=== PATIENT | female | born 1945 | race Caucasian/White ===

== ENCOUNTER → 2016-11-29 | Outpatient (CLI) | payer MEDICARE ==
[~2016-11-29] MED LIST: ASPI1TAB PO; CALTTAB11 PO; CALTTAB5 PO; CENTTAB36 PO; LOSA50TA5 PO; POTA99TA PO; VITA-182 PO
--- NOTE | 2016-11-29 11:50 | REPMRS ---
Patient History The patient states she had a clinical breast exam in 12/04 Patient is postmenopausal. Family history of unknown cancer in brother under age 50. Benign stereotatic breast biopsy of the right breast, July 25, 2009. Reductions of both breasts, 2005. Digital Woman Screen Mammo: November 29, 2016 - Exam #: [id number] Bilateral CC and MLO view(s) were taken. Technologist: Leeann Corral, Technologist Prior study comparison: October 18, 2015, digital woman screen mammo performed at [facility]. September 10, 2014, digital woman screen mammo performed at [facility]. September 10, 2013, digital woman screen mammo performed at [facility]. FINDINGS: The breast tissue is almost entirely fat. There is a needle biopsy marker clip in the right breast. There has been no change in the appearance of the mammogram from the prior studies. There is no interval development of dominant mass, architectural distortion, or clustered microcalcification typical of malignancy. ASSESSMENT: BI-RADS/ACR category 2 mammogram. Benign finding(s). Recommendation Routine screening mammogram of both breasts in 1 year (for women over age 40). This mammogram was interpreted with the aid of an FDA-approved computer-aided dectection system. Electronically Signed By: Korey Easley MD 11/29/16 [id number]
== END ==
LOC: M WHC 11:02
PROVIDERS: ATTEND Nurse Practitioner Women's Health
DX: Z12.31 Encounter for screening mammogram for malignant neoplasm of breast (principal); Z78.0 Asymptomatic menopausal state; Z92.89 Personal history of other medical treatment
CPT/HCPCS: G0202; G0463

== ENCOUNTER → 2017-12-02 | Outpatient (CLI) | payer MEDICARE | LOC: M WHC 10:30 | DX: Z01.419 Encounter for gynecological examination (general) (routine) without abnormal findings (principal); Z12.31 Encounter for screening mammogram for malignant neoplasm of breast (principal); Z78.0 Asymptomatic menopausal state; Z92.89 Personal history of other medical treatment | CPT/HCPCS: 77067 ==

== ENCOUNTER → 2018-12-03 | Outpatient (CLI) | payer MEDICARE ==
[~2018-12-03] MED LIST changes: -ASPI1TAB PO; +ASPI81TA26 PO
--- NOTE | 2018-12-03 15:16 | REPMRS ---
Patient History The patient states she had a clinical breast exam in 11/2018. No known family history of cancer. Benign stereotatic breast biopsy of the right breast, July 25, 2009. Reductions of both breasts, 2005. Digital Woman Screen Mammo: December 03, 2018 - Exam #: [id number] Bilateral CC and MLO view(s) were taken. Technologist: Lorene Purvis Technologist Prior study comparison: December 02, 2017, bilateral digital woman screen mammo performed at [facility]. November 29, 2016, digital woman screen mammo performed at [facility]. October 18, 2015, digital woman screen mammo performed at [facility]. FINDINGS: There are scattered fibroglandular densities. There is a needle biopsy marker clip again noted in the right breast. There is a small nodular neodensity seen on 3-D tomography images in the right central breast superiorly. This is not apparent previously. This merits further evaluation. There has been no change in the appearance of the mammogram from the prior studies. There is a mild amount of scattered fibroglandular density which is fairly symmetric. There is no interval development of dominant mass, architectural distortion, or grouped microcalcification suggestive of malignancy. 3-D tomosynthesis shows no additional findings. Assessment: BI-RADS/ACR category 0 mammogram, Incomplete: Need additional imaging evaluation and/or prior mammograms for comparison. Recommendation Ultrasound and special view mammogram of the right breast. This patient's Lifetime Breast Cancer Risk is estimated at 3.2 %. This mammogram was interpreted with the aid of an FDA-approved computer-aided dectection system. Electronically Signed By: Korey Easley MD 12/03/18 [id number]
--- NOTE | 2018-12-05 09:38 | DEXA ---
AP SPINE L1 - L4 1.427 2.1 3.7 LT FEMUR TOTAL 0.910 -0.8 -0.8 LT NECK 0.887 -1.1 0.7 RT FEMUR TOTAL 0.847 -1.3 0.2 RT NECK 0.849 -1.4 0.4 TOTAL BODY TOTAL OTHER COMMENTS: Normal bone densitometry of the spine. There is low bone density of the hips. The density of the spine has decreased 5.3% since 11/06/2002. The density of the left hip has decreased 9.7% since 11/06/2002. The density of the right hip has decreased 16.6% since 11/06/2002. FOLLOW-UP: Recommendation for the next bone density exam: 2 years. KELTON
== END ==
LOC: M WHC 10:10
PROVIDERS: ATTEND Nurse Practitioner Women's Health
DX: Z01.419 Encounter for gynecological examination (general) (routine) without abnormal findings (principal); Z12.31 Encounter for screening mammogram for malignant neoplasm of breast; Z78.0 Asymptomatic menopausal state; Z86.018 Personal history of other benign neoplasm; Z98.890 Other specified postprocedural states; N63.10 Unspecified lump in the right breast, unspecified quadrant
CPT/HCPCS: 77063; 77067; 77080; G0101

== ENCOUNTER → 2018-12-15 | Outpatient (CLI) | payer MEDICARE ==
--- NOTE | 2018-12-15 16:27 | REP ---
DIAGNOSTIC MAMMOGRAM RIGHT BREAST WITH RIGHT BREAST ULTRASOUND: Multiple spot compression and tomographic images are performed of the right breast to evaluate for a possible nodule seen posteriorly and posteriorly on the prior right MLO view performed 12/03/2018. This was only seen in that one projection on that screening exam. Today's views show that the nodular density appears to compress out to an unchanged appearance when compared to other prior exams including the tomographic images of 12/02/2017. I do not see a persistent suspicious nodule. Real-time sonographic evaluation of the upper outer quadrant of the right breast is performed. There is a lymph node in this region which measures 14 x 9 x 10 mm demonstrating normal appearing morphology of the fatty hilum. IMPRESSION: ACR 2 benign. Nodular density on the right MLO view appears to compress out to an unchanged appearance compared to prior study of 12/02/2017. In this region there is a lymph node identified which appears normal in morphology. The findings are benign. Recommend followup mammogram in one year. BIRADS 2: BI-RADS/ACR category 2 mammogram. Benign Findings. The patient letter being requested is M1. Electronically Signed by Warner Spence MD 12/15/2018 04:31 P
== END ==
LOC: M RAD 10:20
PROVIDERS: ATTEND Nurse Practitioner Women's Health
DX: R92.8 Other abnormal and inconclusive findings on diagnostic imaging of breast (principal)

== ENCOUNTER → 2019-12-07 | Outpatient (CLI) | payer MEDICARE ==
--- NOTE | 2019-12-07 10:49 | REPMRS ---
Patient History The patient states she has not had a clinical breast exam in over a year. No known family history of cancer. Benign stereotatic breast biopsy of the right breast, July 25, 2009. Reductions of both breasts, 2005. 3D TOMOSYNTHESIS WAS PERFORMED. The Linsey Arango lifetime risk for breast cancer is 3.0%. VOLARUNAA CHAYO B. Digital Woman Screen Mammo: December 07, 2019 - Exam #: [id number] Bilateral CC and MLO view(s) were taken. Technologist: Geetha White, Technologist Prior study comparison: December 15, 2018, right breast digital mammo diagnostic unilateral, performed at [facility]. December 03, 2018, bilateral digital woman screen mammo performed at [facility]. FINDINGS: There are scattered fibroglandular densities. There has been no change in the appearance of the mammogram from the prior studies. There is a mild amount of residual fibroglandular tissue which is fairly symmetric. There is no interval development of dominant mass, architectural distortion, or clustered microcalcification suggestive of malignancy. Assessment: BI-RADS/ACR category 1 mammogram. Negative Mammogram. Recommendation Routine screening mammogram in 1 year (for women over age 40). This mammogram was interpreted with the aid of an FDA-approved computer-aided dectection system. Electronically Signed By: Warner Spence MD 12/07/19 [id number]
== END ==
LOC: M WHC 09:58
PROVIDERS: ATTEND Nurse Practitioner Women's Health
DX: Z12.31 Encounter for screening mammogram for malignant neoplasm of breast (principal)

== ENCOUNTER → 2020-03-04 | Outpatient (CLI) | payer MEDICARE ==
--- NOTE | 2020-03-04 12:03 | REPPI ---
INDICATION: BACK SPASMS. COMPARISON: None. TECHNIQUE: Three views FINDINGS: There is heavy mid and lower thoracic right-sided syndesmophyte formation with bilateral lower thoracic level and upper lumbar level syndesmophyte formation. There is moderate disc space narrowing at every level. Vertebral body height is within normal limits. IMPRESSION: Advanced chronic changes <Electronically signed by Abiel Burgos > 03/04/20 [id number]
== END ==
LOC: M WUC 09:38
PROVIDERS: ATTEND Physician Assistant
DX: M25.78 Osteophyte, vertebrae (principal); M51.34 Other intervertebral disc degeneration, thoracic region

== ENCOUNTER → 2020-04-25 | Outpatient (CLI) | payer MEDICARE ==
--- NOTE | 2020-04-25 09:09 | REP ---
INDICATION: PAIN, R/O MYELOMALACIA. COMPARISON: Comparison is made with thoracic spine radiographs from 04 March 2020.. TECHNIQUE: Sagittal and axial T1 and T2-weighted scans are acquired in the usual fashion with and without fat saturation. Sequences include spin echo, turbo spin-echo, and STIR imaging sequences. FINDINGS: Cervical vertebral body heights are preserved alignment is normal. Cervical cord is normal in course, caliber, and signal intensity on T1 and T2 weighted scans. No extra vertebral abnormality is observed. Axial and sagittal images at the C2-C3 level demonstrate a small central focal disc protrusion which indents the ventral subarachnoid space but does not contact the cord. There is no spinal stenosis or foraminal narrowing. At C3-C4, there is central disc bulging which effaces the ventral subarachnoid space. No cord compression. No neural foraminal narrowing is seen. At C4-C5, there is diffuse disc bulging which contacts the ventral margin of the cord. There is some ligamentum flavum hypertrophy and canal size is narrowed as result, the midline AP dimension of the thecal sac at C4-C5 is 7 mm. There is uncovertebral spurring on the left producing mild left-sided foraminal encroachment. At C5-C6 there is degenerative disc narrowing posterior osteophytic ridging and diffuse disc bulging. There is bilateral uncovertebral spurring at C5-6 and there is moderate central canal stenosis due to these factors in combination with some ligamentum flavum hypertrophy. The midline AP dimension of the thecal sac at the C5-6 level is 6 mm. The right-sided uncovertebral spurring is more pronounced than the left. At C6-C7 there is degenerative disc narrowing as well with diffuse disc bulging. This indents the ventral margin of the cord. Canal size is borderline. Midline AP dimension of the thecal sac is 8 mm. There is uncovertebral spurring bilaterally at C6-C7, left a little more prominently than right. The C7-T1 and the visualized upper thoracic levels are unremarkable. IMPRESSION: Degenerative spondylosis changes as above. Central canal stenosis most pronounced at C5-6 and C4-5. Bilateral uncovertebral spurring and foraminal narrowing most pronounced at C5-6. There is no MR evidence of myelomalacia.. <Electronically signed by Korey Easley > 04/25/20 [id number]
--- NOTE | 2020-04-25 09:15 | REP ---
INDICATION: PAIN, R/O MYELOMALACIA. COMPARISON: Comparison thoracic spine radiographs 04 March 2020.. TECHNIQUE: Sagittal and axial T1 and T2-weighted scans are acquired in the usual fashion with and without fat saturation. Sequences include spin echo, turbo spin-echo, and STIR imaging sequences. FINDINGS: Thoracic vertebral body heights are preserved. No fracture or collapse is seen. There are moderate discogenic spurs on the right side anteriorly in the midthoracic spine most pronounced at T6-T7. Thoracic spinal cord is normal in course, caliber, and signal intensity. No evidence of myelomalacia lesion. At the T9-10 level there is a left posterior focal disc protrusion which contacts the ventral margin of the thoracic cord to the left of midline. No cord compression is seen. No spinal stenosis is noted. There is some associated discogenic spurring at T9-10. Disc space narrowing is seen. No other thoracic disc protrusion is appreciated. No neural foraminal narrowing is seen. There are mild degenerative disc changes at at T12-L1 and L1-L2. Disc space narrowing is noted at T7-T8 and T6-T7 mild in degree. IMPRESSION: There is a small left posterior disc protrusion at T9-10 contacting the ventral margin of the cord. No cord compression. No evidence of myelomalacia. <Electronically signed by Korey Easley > 04/25/20 [id number]
== END ==
LOC: M RAD 06:25
PROVIDERS: ATTEND Physical Medicine & Rehabilitation
DX: M47.812 Spondylosis without myelopathy or radiculopathy, cervical region (principal); M48.02 Spinal stenosis, cervical region; M25.78 Osteophyte, vertebrae; M51.24 Other intervertebral disc displacement, thoracic region; M54.6 Pain in thoracic spine; M54.2 Cervicalgia

== ENCOUNTER → 2021-05-04 | Outpatient (REF) | payer MEDICARE | LOC: M SFHCDERM 14:07 | PROVIDERS: ATTEND Nurse Practitioner Family | DX: L82.1 Other seborrheic keratosis (principal) ==

== ENCOUNTER → 2021-06-26 | Outpatient (CLI) | payer MEDICARE | LOC: M WHC 10:17 | PROVIDERS: ATTEND Advanced Practice Midwife | DX: Z12.31 Encounter for screening mammogram for malignant neoplasm of breast (principal) ==

== ENCOUNTER → 2022-01-09 | Outpatient (REF) | payer MEDICARE ==
[2022-01-09 16:59] LABS: BASO % 0.4 % (0.0-1.0); EOS % 0.8 % (0.0-3.0); HEMATOCRIT 39.9 % (36.0-47.0); HEMOGLOBIN 12.5 g/dl (12.0-15.5); LYMPH # 1.6 10^3/uL (1.5-5.0); LYMPH % 29.8 % (24.0-44.0); MEAN CORPUSCULAR HEMOGLOBIN 30.5 pg (27.0-33.0); MEAN CORPUSCULAR HGB CONC 31.3 g/dl (32.0-36.5); MEAN CORPUSCULAR VOLUME 97.3 fl (80.0-96.0); MONO # 0.5 10^3/uL (0.0-0.8); MONO % 9.1 % (2.0-8.0); NEUTROPHILS # 3.1 10^3/uL (1.5-8.5); NEUTROPHILS % 59.5 % (36.0-66.0); PLATELET COUNT, AUTOMATED 253 10^3/uL (150-450); WHITE BLOOD COUNT 5.3 10^3/uL (4.0-10.0)
[2022-01-09 18:54] LABS: ALBUMIN 3.7 G/DL (3.2-5.2); ALT/SGPT 16 U/L (7.0-40); BILIRUBIN,TOTAL 0.3 MG/DL (0.3-1.2); BLOOD UREA NITROGEN 14 MG/DL (9-23); CARBON DIOXIDE LEVEL 28 MMOL/L (20-31); CHLORIDE LEVEL 104 MMOL/L (98-107); CHOLESTEROL LEVEL 159 MG/DL (<200); CHOLESTEROL RISK RATIO 2.58 (<5); GLOMERULAR FILTRATION RATE > 60.0 (>39); GLUCOSE, FASTING 116 MG/DL (74-106); HDL CHOLESTEROL 61.4 MG/DL (>40); LDL CHOLESTEROL 77.4 MG/DL (<100); NON-HDL-C 98 MG/DL; POTASSIUM SERUM 4.5 MMOL/L (3.5-5.1); SODIUM LEVEL 142 MMOL/L (136-145); TOTAL PROTEIN 6.7 G/DL (5.7-8.2); TRIGLYCERIDES LEVEL 101 MG/DL (<150)
== END ==
LOC: M WUC 11:48
PROVIDERS: ATTEND Physician Assistant
DX: I10 Essential (primary) hypertension (principal); E78.5 Hyperlipidemia, unspecified

== ENCOUNTER → 2022-04-06 | Outpatient (CLI) | payer MEDICARE ==
[2022-04-06 17:07] LABS: HEMOGLOBIN A1c 5.2 % (4.0-6.0)
== END ==
LOC: M WUC 11:40
PROVIDERS: ATTEND Physician Assistant
DX: R73.01 Impaired fasting glucose (principal)

== ENCOUNTER → 2022-07-06 | Outpatient (CLI) | payer MEDICARE ==
[2022-07-06 13:11] LABS: ALBUMIN 3.8 G/DL (3.2-5.2); ALKALINE PHOSPHATASE 75 U/L (46-116); ALT/SGPT 18 U/L (7.0-40); AST/SGOT 21 U/L (<34); BILIRUBIN,TOTAL 0.8 MG/DL (0.3-1.2); BLOOD UREA NITROGEN 13 MG/DL (9-23); CALCIUM LEVEL 9.7 MG/DL (8.3-10.6); CARBON DIOXIDE LEVEL 28 MMOL/L (20-31); CHLORIDE LEVEL 107 MMOL/L (98-107); CHOLESTEROL LEVEL 165 MG/DL (<200); CHOLESTEROL RISK RATIO 2.61 (<5); CREATININE FOR GFR 0.62 MG/DL (0.55-1.30); GLOMERULAR FILTRATION RATE > 60.0 (>39); GLUCOSE, FASTING 81 MG/DL (74-106); HDL CHOLESTEROL 63.2 MG/DL (>40); LDL CHOLESTEROL 84.8 MG/DL (<100); NON-HDL-C 101.8 MG/DL; POTASSIUM SERUM 4.7 MMOL/L (3.5-5.1); SODIUM LEVEL 140 MMOL/L (136-145); TOTAL PROTEIN 6.8 G/DL (5.7-8.2); TRIGLYCERIDES LEVEL 85 MG/DL (<150)
== END ==
LOC: M WUC 10:09
PROVIDERS: ATTEND Physician Assistant
DX: I10 Essential (primary) hypertension (principal); E78.5 Hyperlipidemia, unspecified

== ENCOUNTER 2022-11-22 16:01 | Emergency (ER) | payer MEDICARE ==
[~2022-11-22] VITALS: Ht 162.6 cm; Wt 68.6 kg
[2022-11-22] MEDS ORDERED: ATOR1TAB19 (16:26)
[2022-11-22] MEDS ORDERED: ACETAMINOPHEN 500 MG TAB PO ONE (19:10)
[2022-11-22 19:17] VITALS: BP 167/79; TEMP 97.6; O2SAT 100
== END 2022-11-22 19:39 | disposition home or self-care (01) ==
LOC: M ED 16:01
DX: S70.02XA Contusion of left hip, initial encounter (principal); I10 Essential (primary) hypertension; E78.5 Hyperlipidemia, unspecified; F10.10 Alcohol abuse, uncomplicated; Z88.6 Allergy status to analgesic agent; Z79.82 Long term (current) use of aspirin; Z79.02 Long term (current) use of antithrombotics/antiplatelets; Z79.811 Long term (current) use of aromatase inhibitors; Z79.899 Other long term (current) drug therapy

== ENCOUNTER → 2022-11-30 | Outpatient (CLI) | payer MEDICARE ==
[~2022-11-30] MED LIST changes: +ATOR1TAB19
== END ==
LOC: M WUC 14:01
PROVIDERS: ATTEND Physician Assistant
DX: M25.552 Pain in left hip (principal); R10.2 Pelvic and perineal pain; Z53.9 Procedure and treatment not carried out, unspecified reason

== ENCOUNTER 2022-12-14 17:33 | Inpatient (IN) | payer OTHER, MEDICARE ==
[~2022-12-14] VITALS: Ht 162.6 cm; Wt 66.1 kg
[~2022-12-14 17:33] MED LIST changes: -ACET-683 PO; -LOSA50TA28 PO; -MULT1TAB50 PO; -PERCOCET PO; -POTA99CA2 PO; -VITA100093 PO
[2022-12-14] MEDS ORDERED: LOSARTAN 50MG TABLET PO SCH (21:00)
[2022-12-14] MEDS ORDERED: LOSARTAN 25 MG TAB PO SCH (21:00)
[2022-12-14] MEDS ORDERED: LOSARTAN 25 MG TAB PO ONE (21:20)
[2022-12-14 21:46] LABS: BASO % 0.3 % (0.0-1.0); EOS # 0.1 10^3/uL (0.0-0.5); EOS % 0.8 % (0.0-3.0); LYMPH # 1.9 10^3/uL (1.5-5.0); LYMPH % 29.2 % (24.0-44.0); MEAN CORPUSCULAR HEMOGLOBIN 30.6 pg (27.0-33.0); MEAN CORPUSCULAR HGB CONC 33.3 g/dl (32.0-36.5); MEAN CORPUSCULAR VOLUME 91.8 fl (80.0-96.0); MONO # 0.6 10^3/uL (0.0-0.8); MONO % 8.3 % (2.0-8.0); NEUTROPHILS # 4.1 10^3/uL (1.5-8.5); NEUTROPHILS % 61.2 % (36.0-66.0); PLATELET COUNT, AUTOMATED 274 10^3/uL (150-450); RED BLOOD COUNT 4.25 10^6/uL (4.00-5.40); WHITE BLOOD COUNT 6.6 10^3/uL (4.0-10.0)
[2022-12-14 22:12] LABS: ALBUMIN 3.7 G/DL (3.2-5.2); ALKALINE PHOSPHATASE 112 U/L (46-116); ALT/SGPT 12 U/L (7.0-40); AST/SGOT 17 U/L (<34); BILIRUBIN,TOTAL 0.6 MG/DL (0.3-1.2); BLOOD UREA NITROGEN 12 MG/DL (9-23); CALCIUM LEVEL 9.4 MG/DL (8.3-10.6); CARBON DIOXIDE LEVEL 26 MMOL/L (20-31); CHLORIDE LEVEL 104 MMOL/L (98-107); CREATININE FOR GFR 0.53 MG/DL (0.55-1.30); GLOMERULAR FILTRATION RATE > 60.0 (>39); GLUCOSE, FASTING 101 MG/DL (74-106); POTASSIUM SERUM 4.1 MMOL/L (3.5-5.1); SODIUM LEVEL 141 MMOL/L (136-145); TOTAL PROTEIN 7.1 G/DL (5.7-8.2)
[2022-12-14 22:18] LABS: RSV AMPLIFICATION NEGATIVE (NEGATIVE)
[2022-12-14] MEDS ORDERED: POTA99CA2 PO (23:05)
[2022-12-14] MEDS ORDERED: LOSA50TA28 PO (23:05)
[2022-12-14] MEDS ORDERED: MULT1TAB50 PO (23:05)
[2022-12-14] MEDS ORDERED: VITA100093 PO (23:05)
[2022-12-14] MEDS ORDERED: HOME MED LIST COMPLETE! XX SCH (23:10)
[2022-12-14] MEDS ORDERED: HYDROMORPHONE HCL 0.5 MG/ 0.5 ML SYRINGE IV PRN (23:15)
[2022-12-14] MEDS ORDERED: ACETAMINOPHEN TAB 650MG DOSE (2X325MG) PO PRN (23:15)
[2022-12-14] MEDS ORDERED: ONDANSETRON 4MG 2ML VIAL IV PRN (23:15)
[2022-12-15] VITALS (11 sets, daily range): BP systolic 118–159; BP diastolic 63–78; TEMP 97.2–98.1; O2SAT 97–99
[2022-12-15] MEDS: ATORVASTATIN 10 MG TAB PO SCH ×2 (01:30→20:12)
[2022-12-15] MEDS: D5W/LR 1,000 ML IV SCH ×3 (01:51→20:13)
[2022-12-15] MEDS ORDERED: TRANEXAMIC ACID 100 MG/ML 10ML VIAL As Ordered ONE (07:59)
[2022-12-15] MEDS ORDERED: ceFAZolin 2 GM/D5W 50 ML IV BAG As Ordered ONE (08:00)
[2022-12-15] MEDS ORDERED: propofoL 200 MG/20 ML VIAL As Ordered ONE (09:06)
[2022-12-15] MEDS ORDERED: SEVOFLURANE INHAL SOLN 250 ML BTL As Ordered ONE (09:06)
[2022-12-15] MEDS ORDERED: ACETAMINOPHEN 1000MG 100ML IV BAG As Ordered ONE (09:06)
[2022-12-15] MEDS ORDERED: fentaNYL 100 MCG/2 ML INJECTION As Ordered ONE (09:06)
[2022-12-15] MEDS ORDERED: MIDAZOLAM INJ 2MG/2ML VIAL As Ordered ONE (09:06)
[2022-12-15] MEDS ORDERED: LIDOCAINE 2% 100MG/5ML SDV (FOR ANES.) As Ordered ONE (09:06)
[2022-12-15] MEDS ORDERED: PHENYLephrine 500MCG 5ML (100MCG/ML) SYRINGE As Ordered ONE (09:13)
[2022-12-15] MEDS ORDERED: ONDANSETRON 4MG 2ML VIAL As Ordered ONE (09:23)
[2022-12-15] MEDS ORDERED: ONDANSETRON 4MG 2ML VIAL IV PRN (10:05)
[2022-12-15] MEDS ORDERED: oxyCODONE 5MG TAB PO PRN (10:05)
[2022-12-15] MEDS ORDERED: HYDROMORPHONE HCL 0.5 MG/ 0.5 ML SYRINGE IV PRN (10:05)
[2022-12-15] MEDS ORDERED: METOCLOPRAMIDE INJ 10MG/2ML VIAL IV PRN (10:05)
[2022-12-15] MEDS ORDERED: MEPERIDINE 25 MG/ML 1ML VIAL IV PRN (10:05)
[2022-12-15] MEDS ORDERED: diphenhydrAMINE 50MG/ML VIAL IV PRN (10:05)
[2022-12-15] MEDS ORDERED: PERCOCET 5MG/325MG TAB PO PRN (15:40)
[2022-12-15] MEDS: ceFAZolin SOD 2 GM in IV 1 EA IV SCH (16:31)
[2022-12-15] MEDS ORDERED: ENOXAPARIN 40MG/0.4ML SYRINGE (J1650 PER 10MG) SC ONE (18:00)
[2022-12-15] MEDS: LOSARTAN 25 MG TAB PO SCH (20:12)
[2022-12-16] MEDS: ceFAZolin SOD 2 GM in IV 1 EA IV SCH ×2 (00:17→07:51)
[2022-12-16 02:00] VITALS: BP 124/69; TEMP 97.5; O2SAT 95
[2022-12-16] MEDS: D5W/LR 1,000 ML IV SCH (05:33)
[2022-12-16 06:00] VITALS: BP 160/80; TEMP 97.5; O2SAT 97
[2022-12-16 06:54] LABS: HEMATOCRIT 32.7 % (36.0-47.0); MEAN CORPUSCULAR HEMOGLOBIN 31.1 pg (27.0-33.0); MEAN CORPUSCULAR HGB CONC 33.6 g/dl (32.0-36.5); MEAN CORPUSCULAR VOLUME 92.4 fl (80.0-96.0); PLATELET COUNT, AUTOMATED 211 10^3/uL (150-450); RED BLOOD COUNT 3.54 10^6/uL (4.00-5.40); WHITE BLOOD COUNT 8.1 10^3/uL (4.0-10.0)
[2022-12-16 07:17] LABS: ALBUMIN 2.7 G/DL (3.2-5.2); ALKALINE PHOSPHATASE 89 U/L (46-116); ALT/SGPT 10 U/L (7.0-40); AST/SGOT 23 U/L (<34); BILIRUBIN,TOTAL 0.7 MG/DL (0.3-1.2); BLOOD UREA NITROGEN 8 MG/DL (9-23); CALCIUM LEVEL 8.3 MG/DL (8.3-10.6); CARBON DIOXIDE LEVEL 25 MMOL/L (20-31); CHLORIDE LEVEL 106 MMOL/L (98-107); CREATININE FOR GFR 0.49 MG/DL (0.55-1.30); GLOMERULAR FILTRATION RATE > 60.0 (>39); GLUCOSE, FASTING 133 MG/DL (74-106); POTASSIUM SERUM 3.8 MMOL/L (3.5-5.1); SODIUM LEVEL 139 MMOL/L (136-145); TOTAL PROTEIN 5.4 G/DL (5.7-8.2)
[2022-12-16] MEDS: ENOXAPARIN 40MG/0.4ML SYRINGE (J1650 PER 10MG) SC SCH (08:45)
[2022-12-16] MEDS ORDERED: ACET-683 PO (10:30)
[2022-12-16] MEDS ORDERED: ASPI81TA26 PO (10:30)
[2022-12-16] MEDS ORDERED: PERCOCET PO (10:30)
[2022-12-16 14:00] VITALS: BP 166/86; TEMP 97.9; O2SAT 97
[2022-12-16] MEDS ORDERED: PERCOCET 5MG/325MG TAB PO PRN ×2 (15:35)
[2022-12-16 19:59] VITALS: BP 166/86
[2022-12-16] MEDS: ATORVASTATIN 10 MG TAB PO SCH (19:59)
[2022-12-16] MEDS: LOSARTAN 25 MG TAB PO SCH (19:59)
[2022-12-16 20:05] VITALS: BP 160/80; TEMP 97.7; O2SAT 98
[2022-12-17 06:59] VITALS: BP 137/72; TEMP 97.3; O2SAT 97
[2022-12-17] MEDS: ENOXAPARIN 40MG/0.4ML SYRINGE (J1650 PER 10MG) SC SCH (08:27)
== END 2022-12-17 14:05 | disposition home or self-care (01) | DRG 308 ==
LOC: M ED 17:33 → M ED INP 23:12 → M MS5PR 12-15 01:00
PROVIDERS: ADMIT Internal Medicine; ATTEND Student in an Organized Health Care Education/Training Program
PROC: 0QS704Z Reposition Left Upper Femur with Internal Fixation Device, Open Approach (ICD-10-PCS; principal; 2022-12-15 07:30)
DX: S72.002A Fracture of unspecified part of neck of left femur, initial encounter for closed fracture (principal); I10 Essential (primary) hypertension; D50.0 Iron deficiency anemia secondary to blood loss (chronic); E03.9 Hypothyroidism, unspecified; W01.0XXA Fall on same level from slipping, tripping and stumbling without subsequent striking against object, initial encounter; Y92.9 Unspecified place or not applicable; E78.5 Hyperlipidemia, unspecified; Z90.49 Acquired absence of other specified parts of digestive tract; Z90.79 Acquired absence of other genital organ(s); Z79.82 Long term (current) use of aspirin; Z79.899 Other long term (current) drug therapy; Z88.6 Allergy status to analgesic agent; Z20.822 Contact with and (suspected) exposure to COVID-19

== ENCOUNTER → 2022-12-14 | Outpatient (CLI) | payer MEDICARE ==
[~2022-12-14] MED LIST changes: +ACET-683 PO; -ATOR1TAB19; +ATOR1TAB19 PO; +LOSA50TA28 PO; +MULT1TAB50 PO; +PERCOCET PO; +POTA99CA2 PO; +VITA100093 PO
== END ==
LOC: M SOG 16:10
PROVIDERS: ATTEND Orthopaedic Surgery
DX: M25.552 Pain in left hip (principal); M16.0 Bilateral primary osteoarthritis of hip; M47.816 Spondylosis without myelopathy or radiculopathy, lumbar region

== ENCOUNTER → 2022-12-28 | Outpatient (CLI) | payer OTHER, MEDICARE ==
[~2022-12-28] MED LIST changes: +ACET-683 PO; +LOSA50TA28 PO; +MULT1TAB50 PO; +PERCOCET PO; +POTA99CA2 PO; +VITA100093 PO
== END ==
LOC: M SOG 08:18
PROVIDERS: ATTEND Physician Assistant
DX: S72.002D Fracture of unspecified part of neck of left femur, subsequent encounter for closed fracture with routine healing (principal); M76.892 Other specified enthesopathies of left lower limb, excluding foot

== ENCOUNTER 2023-01-16 10:25 | Outpatient (RCR) | payer MEDICARE, OTHER | END 2023-01-17 | LOC: M PT 10:25 | PROVIDERS: ATTEND Physician Assistant | DX: S72.002D Fracture of unspecified part of neck of left femur, subsequent encounter for closed fracture with routine healing (principal) ==

== ENCOUNTER → 2023-01-16 | Outpatient (CLI) | payer OTHER, MEDICARE | LOC: M SOG 07:51 | PROVIDERS: ATTEND Orthopaedic Surgery | DX: S72.002D Fracture of unspecified part of neck of left femur, subsequent encounter for closed fracture with routine healing (principal) ==

== ENCOUNTER 2023-02-13 10:36 | Outpatient (RCR) | payer MEDICARE | END 2023-02-17 | LOC: M PT 10:36 | PROVIDERS: ATTEND Physician Assistant | DX: S72.002D Fracture of unspecified part of neck of left femur, subsequent encounter for closed fracture with routine healing (principal) ==

== ENCOUNTER → 2023-03-20 | Outpatient (RCR) | payer MEDICARE | END | disposition still patient (30) | LOC: M PT 02-20 10:25 | PROVIDERS: ATTEND Physician Assistant | DX: S72.002D Fracture of unspecified part of neck of left femur, subsequent encounter for closed fracture with routine healing (principal) ==

== ENCOUNTER 2023-03-29 11:25 | Emergency (ER) | payer MEDICARE ==
[~2023-03-29] VITALS: Ht 162.6 cm; Wt 70.9 kg
[2023-03-29] MEDS: NEOSPORIN TOP OINT 15GM TOP ONE (13:56)
[2023-03-29] MEDS: BOOSTRIX VACCINE (TETANUS/DIPHTH/ACEL. PERTUSSIS) 0.5ML SYR IM ONE (13:56)
[2023-03-29 14:26] VITALS: BP 142/75; TEMP 97.1; O2SAT 100
== END 2023-03-29 14:29 | disposition home or self-care (01) ==
LOC: M ED 11:25 → EDBD 11:25 → M ED 14:29
DX: S60.511A Abrasion of right hand, initial encounter (principal); W10.1XXA Fall (on)(from) sidewalk curb, initial encounter; I10 Essential (primary) hypertension; Z88.6 Allergy status to analgesic agent; Z79.02 Long term (current) use of antithrombotics/antiplatelets; Z79.811 Long term (current) use of aromatase inhibitors; Z79.82 Long term (current) use of aspirin; Z79.899 Other long term (current) drug therapy; Z23 Encounter for immunization

== ENCOUNTER → 2023-04-17 | Outpatient (CLI) | payer MEDICARE | LOC: M SOG 07:54 | PROVIDERS: ATTEND Physician Assistant | DX: S72.002A Fracture of unspecified part of neck of left femur, initial encounter for closed fracture (principal); Y92.9 Unspecified place or not applicable; Y93.9 Activity, unspecified ==

== ENCOUNTER → 2023-05-08 | Outpatient (CLI) | payer MEDICARE | LOC: M SOG 08:07 | PROVIDERS: ATTEND Physician Assistant | DX: S72.002A Fracture of unspecified part of neck of left femur, initial encounter for closed fracture (principal); Z53.9 Procedure and treatment not carried out, unspecified reason ==

== ENCOUNTER → 2023-08-21 | Outpatient (CLI) | payer MEDICARE | LOC: M SOG 08:02 | PROVIDERS: ATTEND Physician Assistant | DX: M16.11 Unilateral primary osteoarthritis, right hip (principal); M17.11 Unilateral primary osteoarthritis, right knee; M25.551 Pain in right hip; M25.561 Pain in right knee ==

== ENCOUNTER → 2023-09-05 | Outpatient (CLI) | payer MEDICARE | LOC: M WHC 10:37 | PROVIDERS: ATTEND Physician Assistant | DX: Z12.31 Encounter for screening mammogram for malignant neoplasm of breast (principal); N95.1 Menopausal and female climacteric states; R92.313 Mammographic fatty tissue density, bilateral breasts; M85.851 Other specified disorders of bone density and structure, right thigh; M85.852 Other specified disorders of bone density and structure, left thigh ==

== ENCOUNTER → 2024-01-27 | Outpatient (CLI) | payer MEDICARE | LOC: M SOG 13:07 | PROVIDERS: ATTEND Orthopaedic Surgery | DX: S72.002D Fracture of unspecified part of neck of left femur, subsequent encounter for closed fracture with routine healing (principal); Y93.9 Activity, unspecified; Y92.9 Unspecified place or not applicable ==

== ENCOUNTER → 2024-04-10 | Outpatient (REF) | payer MEDICARE | LOC: M LAB REF 16:15 | PROVIDERS: ATTEND Ophthalmology | DX: L82.1 Other seborrheic keratosis (principal) ==

== ENCOUNTER 2024-04-13 10:29 | Outpatient (RCR) | payer MEDICARE | END 2024-04-17 | LOC: M PT 10:29 | PROVIDERS: ATTEND Orthopaedic Surgery | DX: S72.002D Fracture of unspecified part of neck of left femur, subsequent encounter for closed fracture with routine healing (principal) ==

== ENCOUNTER 2024-05-08 10:29 | Outpatient (RCR) | payer MEDICARE | END 2024-05-18 | LOC: M PT 10:29 | PROVIDERS: ATTEND Orthopaedic Surgery | DX: S72.002D Fracture of unspecified part of neck of left femur, subsequent encounter for closed fracture with routine healing (principal) ==